=== PATIENT | female | born 1965 | race Caucasian/White ===

== ENCOUNTER 2016-12-17 19:57 | Emergency (ER) | payer SELFPAY ==
[2016-12-17 20:10] VITALS: BP 141/80; BMI 30.4
[2016-12-17] MEDS ORDERED: NS 1000 ML 1,000 ML IV ONE (20:29)
[2016-12-17] MEDS ORDERED: ZOFRAN INJ 4 MG VIAL IVP ONE (20:30)
--- NOTE | 2016-12-17 20:34 | DR.GENAD ---
HPI - PCP Primary Care Physician: raghu - Complaint/Symptoms Chief Complaint Doctors Comments: Patient is complaining of left lower abdominal pain, nausea, vomiting, diarrhea with decreased appetite for the past two hours getting progressively worst. Patient states she has had a large left lowe abdominal hernia for over seven years and she has not had it repaired because her doctor told her he was waiting for her glucose to come uncontrol before they fixed her hernia. States she has had the hernia seven years but only found out she was a diabetic two years ago. States she think her problems are due to her hernia because she has been like this before. States she smokes one pack cigarette daily but denies alcohol usage. States not other family members sick at home. Chief Complaint:: c/o n/v/d-pain in abd-says she has a hernia and it is hurting- took 4 mg zofran approx 1 hr ago with no relief - Source History Provided: Patient - Mode of Arrival Mode of Arrival: Ambulatory - Timing Onset of Chief Complaint: 12/17/16 PMH - PMH Past Medical History: Yes Past Medical History: Diabetes Past Medical History Comment: mrsa after Past Surgical History: Yes Surgical History: - Family History History of Family Medical Conditions: Yes Family Medical History: Diabetes Mellitus - Social History Does patient currently use any type of tobacco product: Yes Have you used tobacco products in the last 12 months: Yes Type of Tobacco Use: Cigarettes Do you use any recreational Drugs:: No - infectious screening Have you traveled outside the country in the last 6 months?: No Isolation: Standard ROS - Review of Systems Constitutional: No Symptoms Reported, Weakness, Loss of Appetite. negative: See HPI, Chills, Diaphoresis, Fever, Malaise, Irritable, Fatigue, Other Eyes: No Symptoms Reported ENTM: No Symptoms Reported Respiratoy: No Symptoms Reported, Non-Productive Cough, Wheezing. negative: See HPI, Productive Cough, Moist Cough, Dry Cough, Hacking Cough, Barking Cough , Brassy Cough, Orthopnea, Short of Breath, Stridor, Hemoptysis, Other Cardiovascular: No Symptoms Reported Gastrointestinal/Abdominal: No Symptoms Reported, Abdominal Pain, Diarrhea, Nausea, Vomiting. negative: See HPI, Constipation, Food Intolerance, Other Genitourinary: No Symptoms Reported Neurological: No Symptoms Reported Musculoskeletal: No Symptoms Reported Integumentary: No Symptoms Reported Hematologic/Lymphatic: No Symptoms Reported Endocrine: No Symptoms Reported Psychiatric: No Symptoms Reported PE - Vital Signs Vitals: Temperature 98.0 F Pulse Rate 100 Respiratory Rate 18 Blood Pressure 141/80 O2 Sat by Pulse Oximetry 99 - General Limitations: No Limitations General Appearance: Alert, In Distress (moderate) - Head Head Exam: Normal Inspection, Atraumatic, Normocephalic - Eyes Eye exam: Normal Appearance, PERRL, EOMI. negative: Scleral Icterus, Conjunctival Injection, Nystagmus, Miosis, Mydrasis, Periorbital Swelling, Periorbital Tenderness, Other - ENT ENT Exam: Normal Exam, Normal Oropharynx, Normal External Ear Exam, Mucous Membranes Moist, TM's Normal Bilaterally External Ear Exam: Normal External Inspection TM/Canal Exam: Bilateral Normal Nose Exam: Normal Nose Exam Mouth Exam: Normal Inspection Throat Exam: Normal Inspection - Neck Neck Exam: Normal Inspection, Full ROM, Trachea Midline. negative: Tenderness, Meningismus, Lymphadenopathy, Thyromegaly, Other - Chest Chest Inspection: Normal Inspection, Symmetric Chest Wall Rise - Respiratory Respiratory Exam: Normal Lung Sounds Bilat Respiratory Exam: Bilateral Wheezing, Bilateral Decreased Breath Sounds - Cardiovascular Cardiovascular Exam: Regular Rate, Normal Rhythm, Normal Heart Sounds, Systolic Murmur - Abdominal Exam Abdominal Exam: Normal Inspection, Normal Bowel Sounds, Soft, Distention, Tenderness (left lower abdominal hernia 12-15 cm partially reduciable), Guarding, Dimnished Bowel Sounds, Hernia Abdominal Tenderness: LLQ, Suprapubic, Moderate - Extremities Extremities Exam: Normal Inspection, Full ROM, Normal Capillary Refill. negative: Tenderness, Edema, Joint Swelling, Calf Tenderness, Other - Back Back Exam: Normal Inspection, Full ROM. negative: Tenderness, (R) CVA Tenderness, (L) CVA Tenderness, Muscle Spasm, Paraspinal Tenderness, Vertebral Tenderness, Rashes, (R) Sciatic Notch Tenderness, (L) Sciatic Notch Tendern, (R ) Straight Leg Raise, (L) Straight Leg Raise, Other - Neurologic Neurological Exam: Alert, Oriented X3, CN II-XII Intact, Reflexes Normal. negative: Normal Gait (gait not tested) - Psychiatric Psychiatric Exam: Normal Affect, Normal Mood. negative: Depressed, Agitated, Anxious, Flat Affect, Manic, Homicidal Ideation, Suicidal Ideation, Other - Skin Skin Exam: Warm, Dry, Intact, Normal Color ROR - Labs Reviewed Laboratory Results Reviewed?: Yes (All labs and x-ray results reviewed and discussed with patient) Result Diagrams: 12/17/16 20:45 12/17/16 20:45 Laboratory: WBC 14.7 X10^3/uL (3.6-10.0) H 12/17/16 20:45 RBC 5.41 X10^6/uL (3.5-5.4) H 12/17/16 20:45 Hgb 14.3 g/dL (12.0-16.0) 12/17/16 20:45 Hct 43.1 % (36.0-47.0) 12/17/16 20:45 MCV 79.6 fL (80.0-100.0) L 12/17/16 20:45 MCH 26.5 pg (27.0-34.0) L 12/17/16 20:45 MCHC 33.3 g/dL (33.0-35.0) 12/17/16 20:45 RDW 16.8 % (11.6-16.5) H 12/17/16 20:45 Plt Count 273 X10^3/uL (150.0-450.0) 12/17/16 20:45 MPV 9.2 fL (7.4-11.0) 12/17/16 20:45 Neut % 82.8 % (42.0-75.0) H 12/17/16 20:45 Lymph % 10.5 % (21.0-51.0) L 12/17/16 20:45 [place] % 2.6 % (0.0-13.0) 12/17/16 20:45 Eos % 2.5 % (0.9-2.9) 12/17/16 20:45 Baso % 1.6 % (0.2-1.0) H 12/17/16 20:45 Neut # 12.2 x10^3/uL (2.2-4.8) H 12/17/16 20:45 Lymph # 1.5 X10^3/uL (1.3-2.9) 12/17/16 20:45 [place] # 0.4 x10^3/uL (0.3-0.8) 12/17/16 20:45 Eos # 0.4 x10^3/uL (0.0-0.2) H 12/17/16 20:45 Baso # 0.2 X10^3/uL (0.0-0.1) H 12/17/16 20:45 Absolute Nucleated RBC 0.0 /100WBC 12/17/16 20:45 Sodium 138 mmol/L (136-145) 12/17/16 20:45 Corrected Sodium 139 mmol/L (136-145) 12/17/16 20:45 Potassium 4.3 mmol/L (3.5-5.1) 12/17/16 20:45 Chloride 102 mmol/L (98-107) 12/17/16 20:45 Carbon Dioxide 22.8 mmol/L (21-32) 12/17/16 20:45 BUN 16 mg/dL (7-18) 12/17/16 20:45 Creatinine 1.25 mg/dL (0.55-1.02) H 12/17/16 20:45 Est GFR (MDRD) Af Amer 58 (>60) L 12/17/16 20:45 Est GFR (MDRD) Non-Af 48 (>60) L 12/17/16 20:45 Glucose 158 mg/dL (65-99) H 12/17/16 20:45 Calcium 10.2 mg/dL (8.5-10.1) H 12/17/16 20:45 Corrected Calcium TNP 12/17/16 20:45 Total Bilirubin 0.40 mg/dL (0.2-1.0) 12/17/16 20:45 AST 55 Units/L (15-37) H 12/17/16 20:45 ALT 41 Units/L (12-78) 12/17/16 20:45 Alkaline Phosphatase 90 Units/L (46-116) 12/17/16 20:45 Total Protein 8.4 g/dL (6.4-8.2) H 12/17/16 20:45 Albumin 3.8 g/dL (3.4-5.0) 12/17/16 20:45 Globulin 4.6 g/dL (2.5-4.5) H 12/17/16 20:45 Albumin/Globulin Ratio 0.8 Ratio (1.1-2.1) L 12/17/16 20:45 Amylase 86 Units/L (25-115) 12/17/16 20:45 Lipase 202 Units/L (73-393) 12/17/16 20:45 Specimen Type Clean catch urine 12/17/16 20:30 Urine Color Yellow (YELLOW) 12/17/16 20:30 Urine Appearance Cloudy (CLEAR) 12/17/16 20:30 Urine pH 5.0 (5.0 - 8.0) 12/17/16 20:30 Ur Specific [place] 1.025 (1.000-1.030) 12/17/16 20:30 Urine Protein 3+ (NEGATIVE) 12/17/16 20:30 Urine Glucose (UA) Negative (NEGATIVE) 12/17/16 20:30 Urine Ketones 1+ (NEGATIVE) 12/17/16 20:30 Urine Occult Blood 1+ (NEGATIVE) 12/17/16 20:30 Urine Nitrite Negative (NEGATIVE) 12/17/16 20:30 Urine Bilirubin 1+ (NEGATIVE) 12/17/16 20:30 Urine Urobilinogen 1+ (NORMAL) 12/17/16 20:30 Ur Leukocyte Esterase 1+ (NEGATIVE) 12/17/16 20:30 Urine RBC 01 - 03 /HPF (NEGATIVE) 12/17/16 20:30 Urine WBC 02 - 05 /HPF (NEGATIVE) 12/17/16 20:30 Ur Squamous Epith Cells Numerous /HPF (NEGATIVE) 12/17/16 20:30 Amorphous Sediment 2+ /HPF (NEGATIVE) 12/17/16 20:30 Urine Bacteria 2+ /HPF (NEGATIVE) 12/17/16 20:30 Hyaline Casts Rare /LPF (NEGATIVE) 12/17/16 20:30 Urine Mucus Moderate /HPF (NEGATIVE) 12/17/16 20:30 Ur Culture Indicated? No/not indicated 12/17/16 20:30 - XRAY XRAY Interpreted by: Radiologist (CT abdomen/pelvis: Large left lower quadrant ventral bowel containing hernia. Cholelithiasis) - Diagnosis Discharge Problem: Abdominal pain, Gastroenteritis, Cholelithiasis, Urinary tract infection, Diabetes mellitus, Ventral hernia Chronic kidney disease Qualifiers: Chronic kidney disease stage: stage 3 (moderate) Qualified Code(s): N18.3 - Chronic kidney disease, stage 3 (moderate) - Discharge Plan Disposition: HOME, SELF-CARE Condition: Stable Prescriptions: Ciprofloxacin HCl [CIPRO 500 MG TAB *] 500 mg PO Q12H #20 tab Promethazine HCl [PHENERGAN TAB 25 MG *] 25 mg PO Q6H PRN #20 tab PRN Reason: Nausea/Vomiting - Follow ups/Referrals Follow ups/Referrals: Wood Fowler [Primary Care Provider] - 3 days JJ LUA [STAFF PHYSICIAN] - 3 days - Instructions Instructions: Cholelithiasis, Urinary Tract Infection, Ventral Hernia, Chronic Kidney Disease, Viral Gastroenteritis, Adult
[2016-12-17] MEDS ORDERED: TORADOL 30 MG VIAL IVP STA (20:35)
[2016-12-17] MEDS ORDERED: NS 1000 ML 1,000 ML ONE (20:37)
[2016-12-17] MEDS ORDERED: TORADOL 30 MG VIAL ONE (20:37)
[2016-12-17] MEDS ORDERED: ZOFRAN INJ 4 MG VIAL ONE (20:37)
[2016-12-17 20:54] LABS: BASOPHILS # (AUTO) 0.2 X10^3/uL (0.0-0.1); BASOPHILS % (AUTO) 1.6 % (0.2-1.0); EOSINOPHILS # (AUTO) 0.4 x10^3/uL (0.0-0.2); EOSINOPHILS % (AUTO) 2.5 % (0.9-2.9); HEMATOCRIT 43.1 % (36.0-47.0); HEMOGLOBIN 14.3 g/dL (12.0-16.0); LYMPHOCYTES # (AUTO) 1.5 X10^3/uL (1.3-2.9); LYMPHOCYTES % (AUTO) 10.5 % (21.0-51.0); MEAN CORPUSCULAR HEMOGLOBIN 26.5 pg (27.0-34.0); MEAN CORPUSCULAR HGB CONC 33.3 g/dL (33.0-35.0); MEAN CORPUSCULAR VOLUME 79.6 fL (80.0-100.0); MEAN PLATELET VOLUME 9.2 fL (7.4-11.0); MONOCYTES # (AUTO) 0.4 x10^3/uL (0.3-0.8); MONOCYTES % (AUTO) 2.6 % (0.0-13.0); NEUTROPHILS # (AUTO) 12.2 x10^3/uL (2.2-4.8); NEUTROPHILS % (AUTO) 82.8 % (42.0-75.0); PLATELET COUNT 273 X10^3/uL (150.0-450.0); RED BLOOD COUNT 5.41 X10^6/uL (3.5-5.4); RED CELL DISTRIBUTION WIDTH 16.8 % (11.6-16.5); WHITE BLOOD COUNT 14.7 X10^3/uL (3.6-10.0)
[2016-12-17 20:58] LABS: BILIRUBIN,URINE 1+ (NEGATIVE); BLOOD/HEMOGLOBIN,URINE 1+ (NEGATIVE); GLUCOSE, URINE NEGATIVE (NEGATIVE); KETONES,URINE 1+ (NEGATIVE); LEUKOCYTE ESTERASE ,URINE 1+ (NEGATIVE); NITRITES,URINE NEGATIVE (NEGATIVE); PROTEIN,URINE 3+ (NEGATIVE); UROBILINOGEN,URINE 1+ (NORMAL)
[2016-12-17 21:04] LABS: ALANINE AMINOTRANSFERASE 41 Units/L (12-78); ALBUMIN 3.8 g/dL (3.4-5.0); ALKALINE PHOSPHATASE 90 Units/L (46-116); AMYLASE 86 Units/L (25-115); ASPARTATE AMINO TRANSFERASE 55 Units/L (15-37); BLOOD UREA NITROGEN 16 mg/dL (7-18); CALCIUM 10.2 mg/dL (8.5-10.1); CARBON DIOXIDE 22.8 mmol/L (21-32); CHLORIDE 102 mmol/L (98-107); COR NA(FOR HYPERGLY) 139 mmol/L (136-145); CREATININE 1.25 mg/dL (0.55-1.02); GLUCOSE 158 mg/dL (65-99); LIPASE 202 Units/L (73-393); SODIUM 138 mmol/L (136-145); TOTAL PROTEIN 8.4 g/dL (6.4-8.2); eGFR BLACK RACES 58 (>60); eGFR NON BLACK RACES 48 (>60)
--- NOTE | 2016-12-17 21:06 | CT ---
Abdomen and pelvis CT without contrast: Indication: Left lower quadrant abdominal pain in association with hernia. Vomiting. Comparison: None available. Technique: Noncontrast CT imaging of the abdomen and pelvis was performed with multiplanar reformati ons. Findings: The imaged thoracic contents are unremarkable. No noncontrast vascular abnormality is appr eciated. There is severe diffuse decrease in attenuation of the liver. Otherwise, the solid abdominal viscera are unremarkable. A gallstone is present, without biliary dilation or pericholecystic inflammation. There is a large left lower quadrant hernia, the mouth of which measures about 5.5 x 4.8 cm. The her sophie contains small bowel, but there is no associated inflammatory change or dilated loops of bowel. The remainder of the imaged gastrointestinal tract is unremarkable. The pelvic organs are within normal limits. There is no free fluid or free air. No acute skeletal abnormality or worrisome skeletal lesion is identified. Impression: 1. Large left lower quadrant ventral small bowel containing hernia. No inflammatory change within th e hernia is seen, and there is no evidence of bowel obstruction. 2. Marked hepatic steatosis and cholelithiasis. Reported By:
[2016-12-17 21:14] LABS: COLOR,URINE YELLOW (YELLOW)
[2016-12-17 21:15] LABS: AMORPHOUS SEDIMENT,UR 2+ /HPF (NEGATIVE); APPEARANCE,URINE CLOUDY (CLEAR); BACTERIA,URINE 2+ /HPF (NEGATIVE); HYALINE CASTS, URINE RARE /LPF (NEGATIVE); MUCUS,URINE MODERATE /HPF (NEGATIVE); SQUAMOUS EPITHELIAL CELL,UR NUMEROUS /HPF (NEGATIVE)
[2016-12-17] MEDS ORDERED: ROCEPHIN VIAL 1 GM 1 GM in NS 50 ML IV + SPIKE MINIBAG* 50 ML IV ONE (21:33)
[2016-12-17] MEDS ORDERED: ROCEPHIN 1 GM IV PREMIX * OUT OF STOCK 50 ML IV ONE (22:06)
== END 2016-12-17 22:29 | disposition home or self-care (01) ==
LOC: ER 19:57
DX: K43.9 Ventral hernia without obstruction or gangrene (principal); R10.32 Left lower quadrant pain; K52.89 Other specified noninfective gastroenteritis and colitis; N18.3 Chronic kidney disease, stage 3 (moderate); K80.20 Calculus of gallbladder without cholecystitis without obstruction; N39.0 Urinary tract infection, site not specified; E11.9 Type 2 diabetes mellitus without complications; K76.0 Fatty (change of) liver, not elsewhere classified
CPT/HCPCS: 36415; 74176; 80053; 81001; 82150; 83690; 85025; 96365; 96367; 96374; 96375; 99283; A4216; A4222; J0696; J1885; J2405

== ENCOUNTER 2018-11-22 09:43 | Inpatient (IN) ==
[2018-11-22] MEDS: D5 1/2 NS 1000 ML 1,000 ML IV SCH ×2 (10:47→19:12)
[2018-11-22 10:52] LABS: BASOPHILS # (AUTO) 0.1 X10^3/uL (0.0-0.1); BASOPHILS % (AUTO) 0.7 % (0.2-1.0); EOSINOPHILS # (AUTO) 0.4 x10^3/uL (0.0-0.2); EOSINOPHILS % (AUTO) 3.9 % (0.9-2.9); HEMATOCRIT 44.9 % (36.0-47.0); HEMOGLOBIN 15.3 g/dL (12.0-16.0); LYMPHOCYTES # (AUTO) 1.5 X10^3/uL (1.3-2.9); LYMPHOCYTES % (AUTO) 15.4 % (21.0-51.0); MEAN CORPUSCULAR HEMOGLOBIN 30.5 pg (27.0-34.0); MEAN CORPUSCULAR HGB CONC 34.1 g/dL (33.0-35.0); MEAN CORPUSCULAR VOLUME 89.5 fL (80.0-100.0); MONOCYTES # (AUTO) 0.4 x10^3/uL (0.3-0.8); MONOCYTES % (AUTO) 3.8 % (0.0-13.0); NEUTROPHILS # (AUTO) 7.6 x10^3/uL (2.2-4.8); NEUTROPHILS % (AUTO) 76.2 % (42.0-75.0); PLATELET COUNT 211 X10^3/uL (150.0-450.0); RED BLOOD COUNT 5.01 X10^6/uL (3.5-5.4); RED CELL DISTRIBUTION WIDTH 14.6 % (11.6-16.5); WHITE BLOOD COUNT 9.9 X10^3/uL (3.6-10.0)
[2018-11-22 10:56] LABS: BILIRUBIN,URINE NEGATIVE (NEGATIVE); BLOOD/HEMOGLOBIN,URINE NEGATIVE (NEGATIVE); GLUCOSE, URINE NEGATIVE (NEGATIVE); KETONES,URINE NEGATIVE (NEGATIVE); LEUKOCYTE ESTERASE ,URINE NEGATIVE (NEGATIVE); NITRITES,URINE NEGATIVE (NEGATIVE); PROTEIN,URINE NEGATIVE (NEGATIVE); UROBILINOGEN,URINE NORMAL (NORMAL)
[2018-11-22 10:57] LABS: APPEARANCE,URINE CLEAR (CLEAR); COLOR,URINE YELLOW (YELLOW)
[2018-11-22 10:59] LABS: ALANINE AMINOTRANSFERASE 35 Units/L (12-78); ALBUMIN 3.6 g/dL (3.4-5.0); ALKALINE PHOSPHATASE 119 Units/L (46-116); ASPARTATE AMINO TRANSFERASE 54 Units/L (15-37); BLOOD UREA NITROGEN 10 mg/dL (7-18); CALCIUM 9.5 mg/dL (8.5-10.1); CARBON DIOXIDE 25.2 mmol/L (21-32); CHLORIDE 100 mmol/L (98-107); COR NA(FOR HYPERGLY) 137 mmol/L (136-145); SODIUM 135 mmol/L (136-145); eGFR NON BLACK RACES 55 (>60)
--- NOTE | 2018-11-22 10:59 | DR.EXTPAIN ---
HPI Time seen Time Seen by Provider: 11/22/18 10:51 PCP Primary Care Physician: ADDIS LOPEZ Complaint/Symptoms Chief Complaint:: HAVING PROBLEMS WITH GALLBLADDER AND HERNIA FOR ABOUT A MONTH. PAIN GOT WORSE SO I CAME HERE Self Treatment fo Chief Complaint: ZOFRAN Source History Provided: Patient Mode of arrival Mode of Arrival: Ambulatory Timing Onset of Chief Complaint: 10/23/18 PMH PMH Past Medical History: Yes Past Medical History: Asthma, Diabetes and Dyslipidemia Past Surgical History: Yes Surgical History: Family History History of Family Medical Conditions: Yes Family Medical History: Cancer and Hypertension Social History Does patient currently use any type of tobacco product: Yes Have you used tobacco products in the last 12 months: Yes Type of Tobacco Use: Cigarettes How many years tobacco product used: 35 Does any household member use tobacco: Yes Alcohol Use: None Do you use any recreational Drugs:: No Lives With: Spouse Lives Where: Home infectious screening In the last 2 months have you had wt loss of >10#?: NO Have you had fever, night sweats or hemotysis?: No Have you traveled outside the country in the last 6 months?: No Isolation: Standard PE Vital Signs Vitals: Temperature 97.2 F Pulse Rate 90 Respiratory Rate 16 Blood Pressure [Left Arm] 141/86 Blood Pressure 136/79 O2 Sat by Pulse Oximetry 97 ROR Labs Reviewed Result Diagrams: 11/22/18 10:40 11/22/18 10:40 Laboratory: WBC 9.9 X10^3/uL (3.6-10.0) 11/22/18 10:40 RBC 5.01 X10^6/uL (3.5-5.4) 11/22/18 10:40 Hgb 15.3 g/dL (12.0-16.0) 11/22/18 10:40 Hct 44.9 % (36.0-47.0) 11/22/18 10:40 MCV 89.5 fL (80.0-100.0) 11/22/18 10:40 MCH 30.5 pg (27.0-34.0) 11/22/18 10:40 MCHC 34.1 g/dL (33.0-35.0) 11/22/18 10:40 RDW 14.6 % (11.6-16.5) 11/22/18 10:40 Plt Count 211 X10^3/uL (150.0-450.0) 11/22/18 10:40 MPV 9.0 fL (7.4-11.0) 11/22/18 10:40 Neut % (Auto) 76.2 % (42.0-75.0) H 11/22/18 10:40 Lymph % (Auto) 15.4 % (21.0-51.0) L 11/22/18 10:40 [place] % (Auto) 3.8 % (0.0-13.0) 11/22/18 10:40 Eos % (Auto) 3.9 % (0.9-2.9) H 11/22/18 10:40 Baso % (Auto) 0.7 % (0.2-1.0) 11/22/18 10:40 Neut # (Auto) 7.6 x10^3/uL (2.2-4.8) H 11/22/18 10:40 Lymph # (Auto) 1.5 X10^3/uL (1.3-2.9) 11/22/18 10:40 [place] # (Auto) 0.4 x10^3/uL (0.3-0.8) 11/22/18 10:40 Eos # (Auto) 0.4 x10^3/uL (0.0-0.2) H 11/22/18 10:40 Baso # (Auto) 0.1 X10^3/uL (0.0-0.1) 11/22/18 10:40 Absolute Nucleated RBC 0.1 /100WBC 11/22/18 10:40 Sodium 135 mmol/L (136-145) L 11/22/18 10:40 Corrected Sodium 137 mmol/L (136-145) 11/22/18 10:40 Potassium 4.4 mmol/L (3.5-5.1) 11/22/18 10:40 Chloride 100 mmol/L (98-107) 11/22/18 10:40 Carbon Dioxide 25.2 mmol/L (21-32) 11/22/18 10:40 BUN 10 mg/dL (7-18) 11/22/18 10:40 Creatinine 1.10 mg/dL (0.55-1.02) H 11/22/18 10:40 Est GFR (MDRD) Af Amer > 60 (>60) 11/22/18 10:40 Est GFR (MDRD) Non-Af 55 (>60) L 11/22/18 10:40 Glucose 180 mg/dL (65-99) H 11/22/18 10:40 Calcium 9.5 mg/dL (8.5-10.1) 11/22/18 10:40 Corrected Calcium TNP 11/22/18 10:40 Total Bilirubin 0.30 mg/dL (0.2-1.0) 11/22/18 10:40 AST 54 Units/L (15-37) H 11/22/18 10:40 ALT 35 Units/L (12-78) 11/22/18 10:40 Alkaline Phosphatase 119 Units/L (46-116) H 11/22/18 10:40 Total Protein 8.0 g/dL (6.4-8.2) 11/22/18 10:40 Albumin 3.6 g/dL (3.4-5.0) 11/22/18 10:40 Globulin 4.4 g/dL (2.5-4.5) 11/22/18 10:40 Albumin/Globulin Ratio 0.8 Ratio (1.1-2.1) L 11/22/18 10:40 Specimen Type Clean catch urine 11/22/18 10:49 Urine Color Yellow (YELLOW) 11/22/18 10:49 Urine Appearance Clear (CLEAR) 11/22/18 10:49 Urine pH 6.0 (5.0 - 8.0) 11/22/18 10:49 Ur Specific [place] 1.010 (1.000-1.030) 11/22/18 10:49 Urine Protein Negative (NEGATIVE) 11/22/18 10:49 Urine Glucose (UA) Negative (NEGATIVE) 11/22/18 10:49 Urine Ketones Negative (NEGATIVE) 11/22/18 10:49 Urine Occult Blood Negative (NEGATIVE) 11/22/18 10:49 Urine Nitrite Negative (NEGATIVE) 11/22/18 10:49 Urine Bilirubin Negative (NEGATIVE) 11/22/18 10:49 Urine Urobilinogen Normal (NORMAL) 11/22/18 10:49 Ur Leukocyte Esterase Negative (NEGATIVE) 11/22/18 10:49
--- NOTE | 2018-11-22 11:24 | RAD ---
HISTORY: Abdominal pain Study: Flat and upright abdomen, PA chest Comparison: 10/21/2018 Findings: The heart is within normal limits in size. The karina are normal. The lung vicente are clear. The abdominal gas pattern is nonspecific and nonobstructive. No pneumoperitoneum is identified. Cholelithiasis is present. There is a moderately large amount of stool present suggestive of possible constipation. IMPRESSION: Nonspecific, nonobstructive bowel gas pattern Cholelithiasis Lungs clear Moderate stool throughout the colon Reported By:
[2018-11-22] MEDS: LEVAQUIN PREMIX IV 500 MG 500 MG/100 ML BAG IV SCH (14:58)
[2018-11-22] MEDS: DILAUDID INJ IVP PRN ×2 (14:59→20:30)
[2018-11-22] MEDS: ZOFRAN INJ 4 MG VIAL IVP PRN ×2 (15:00→19:12)
--- NOTE | 2018-11-23 00:47 | DR.UPDATE ---
H&P Update History and Physical Update: History and Physical reviewed and patient examined. Changes noted: NO Yes with the following: Pt was having abdominal pain , nausea, vomiting with bloating feeling and food intolerance . she was directed to go to the ER and was admitted to proceed with surgery . Pt was getting dehydrated (has underlining CKD , DM, liver dysfunction with slight elevated LFTand symptomatic gallstones .).the incisional hernia is very large , incarcerated with partial SBO . Pt is smoker, obese with mild COPD. abdomen is tender mainly Rt side and around the hernia which is completely incarcerated and large , > 15 cm . will keep NPO , IVF and ATB , give enemas , medical evaluation and possible surgery after that
[2018-11-23] MEDS: D5 1/2 NS 1000 ML 1,000 ML IV SCH ×3 (04:00→20:42)
[2018-11-23 05:23] LABS: BASOPHILS % (AUTO) 0.4 % (0.2-1.0); EOSINOPHILS # (AUTO) 0.3 x10^3/uL (0.0-0.2); EOSINOPHILS % (AUTO) 3.3 % (0.9-2.9); HEMATOCRIT 42.1 % (36.0-47.0); HEMOGLOBIN 14.4 g/dL (12.0-16.0); LYMPHOCYTES # (AUTO) 1.5 X10^3/uL (1.3-2.9); LYMPHOCYTES % (AUTO) 17.3 % (21.0-51.0); MEAN CORPUSCULAR HEMOGLOBIN 30.5 pg (27.0-34.0); MEAN CORPUSCULAR HGB CONC 34.2 g/dL (33.0-35.0); MEAN CORPUSCULAR VOLUME 89.1 fL (80.0-100.0); MONOCYTES # (AUTO) 0.3 x10^3/uL (0.3-0.8); MONOCYTES % (AUTO) 3.7 % (0.0-13.0); NEUTROPHILS # (AUTO) 6.7 x10^3/uL (2.2-4.8); NEUTROPHILS % (AUTO) 75.3 % (42.0-75.0); PLATELET COUNT 194 X10^3/uL (150.0-450.0); RED BLOOD COUNT 4.72 X10^6/uL (3.5-5.4); RED CELL DISTRIBUTION WIDTH 14.6 % (11.6-16.5); WHITE BLOOD COUNT 8.9 X10^3/uL (3.6-10.0)
[2018-11-23 05:29] LABS: ALANINE AMINOTRANSFERASE 30 Units/L (12-78); ALBUMIN 3.1 g/dL (3.4-5.0); ALKALINE PHOSPHATASE 100 Units/L (46-116); ASPARTATE AMINO TRANSFERASE 51 Units/L (15-37); BLOOD UREA NITROGEN 8 mg/dL (7-18); CALCIUM 8.8 mg/dL (8.5-10.1); CARBON DIOXIDE 29.3 mmol/L (21-32); CHLORIDE 101 mmol/L (98-107); COR CA(FOR HYPOALB) 9.5 mg/dL (8.5-10.1); COR NA(FOR HYPERGLY) 138 mmol/L (136-145); CREATININE 1.07 mg/dL (0.55-1.02); SODIUM 137 mmol/L (136-145); TOTAL PROTEIN 7.3 g/dL (6.4-8.2); eGFR NON BLACK RACES 57 (>60)
[2018-11-23] MEDS: ZOFRAN INJ 4 MG VIAL IVP PRN ×3 (05:57→18:25)
[2018-11-23] MEDS ORDERED: PHARMACY CONSULT - DOSE _____ XX SCH (09:00)
[2018-11-23] MEDS ORDERED: PROTONIX INJ 40 MG VIAL ONE (09:01)
[2018-11-23] MEDS: PROTONIX INJ 40 MG VIAL IVP SCH (09:10)
[2018-11-23 09:21] VITALS: BMI 33.8
[2018-11-23] MEDS: LEVAQUIN PREMIX IV 500 MG 500 MG/100 ML BAG IV SCH (09:44)
[2018-11-23] MEDS ORDERED: QUELICIN (OR ANECTINE) ONE (09:59)
[2018-11-23] MEDS ORDERED: NEOSTIGMINE INJ ONE (09:59)
[2018-11-23] MEDS ORDERED: ZEMURON ONE ×2 (09:59→12:14)
[2018-11-23] MEDS ORDERED: ZOFRAN INJ 4 MG VIAL ONE (09:59)
[2018-11-23] MEDS ORDERED: TORADOL 30 MG VIAL ONE (09:59)
[2018-11-23] MEDS ORDERED: ROBINUL ONE (09:59)
[2018-11-23] MEDS ORDERED: XYLOCAINE 1 % (PLAIN) ONE (09:59)
[2018-11-23] MEDS ORDERED: DECADRON INJ ONE ×2 (09:59→12:16)
[2018-11-23] MEDS ORDERED: VERSED ONE (09:59)
[2018-11-23] MEDS ORDERED: DIPRIVAN VIAL ONE (09:59)
[2018-11-23] MEDS ORDERED: ULTANE GAS ONE (09:59)
[2018-11-23] MEDS ORDERED: EPHEDRINE SULFATE INJ ONE (09:59)
[2018-11-23] MEDS ORDERED: NS IRRIGATION 3000 ML ONE (10:15)
[2018-11-23] MEDS ORDERED: NS IRRIGATION 1000 ML ONE (10:15)
[2018-11-23] MEDS ORDERED: BACITRACIN VIAL ONE (11:48)
[2018-11-23] MEDS ORDERED: LR 1000 ML IV 1,000 ML ONE ×2 (12:06→14:19)
[2018-11-23] MEDS ORDERED: FENTANYL INJ 100 mcg ONE (12:14)
[2018-11-23] MEDS ORDERED: DIPRIVAN VIAL 20 ML ONE (12:18)
[2018-11-23] MEDS ORDERED: NS 100 ML IV 100 ML ONE (12:53)
[2018-11-23] MEDS ORDERED: NS 1000 ML 1,000 ML ONE (12:54)
[2018-11-23] MEDS ORDERED: ANCEF 1 GRAM IV PREMIX* 1 G/50 ML BAG IV ONE (13:13)
[2018-11-23 13:48] LABS: BILIRUBIN,URINE NEGATIVE (NEGATIVE); BLOOD/HEMOGLOBIN,URINE NEGATIVE (NEGATIVE); GLUCOSE, URINE NEGATIVE (NEGATIVE); KETONES,URINE NEGATIVE (NEGATIVE); LEUKOCYTE ESTERASE ,URINE NEGATIVE (NEGATIVE); NITRITES,URINE NEGATIVE (NEGATIVE); PROTEIN,URINE 2+ (NEGATIVE); UROBILINOGEN,URINE NORMAL (NORMAL)
[2018-11-23 13:51] LABS: APPEARANCE,URINE CLEAR (CLEAR); COLOR,URINE YELLOW (YELLOW)
[2018-11-23 13:55] LABS: BACTERIA,URINE NEGATIVE /HPF (NEGATIVE); RBC,URINE 0-2 /HPF (NONE SEEN); RENAL EPITHELIAL CELLS,URINE RARE /HPF (NEGATIVE); SQUAMOUS EPITHELIAL CELL,UR FEW /HPF (NEGATIVE)
[2018-11-23] MEDS ORDERED: NS 1000 ML 2,000 ML ONE (14:19)
[2018-11-23] MEDS ORDERED: DILAUDID INJ ONE ×2 (16:12→16:29)
[2018-11-23] MEDS: DILAUDID INJ IVP PRN ×4 (16:13→22:06)
[2018-11-23] MEDS ORDERED: ZOFRAN INJ 4 MG VIAL IVP PRN (16:14)
[2018-11-23] MEDS ORDERED: REGLAN INJ 10 MG VIAL IVP PRN (16:14)
[2018-11-23] MEDS ORDERED: BENADRYL INJ 50 MG VIAL IVP PRN (16:14)
[2018-11-23] MEDS ORDERED: PHENERGAN INJ 25 MG IM PRN (16:14)
[2018-11-23] MEDS ORDERED: HumuLIN R ONE (17:40)
[2018-11-23] MEDS ORDERED: PHENERGAN INJ 25 MG IM ONE (22:04)
[2018-11-23] MEDS: ANCEF VIAL 1 GRAM IVP SCH (22:06)
[2018-11-24] MEDS: D5 1/2 NS 1000 ML 1,000 ML IV SCH ×3 (00:33→08:59)
[2018-11-24] MEDS: ZOFRAN INJ 4 MG VIAL IVP PRN ×4 (04:44→22:37)
[2018-11-24] MEDS: DILAUDID INJ IVP PRN ×5 (04:44→20:46)
[2018-11-24 05:31] LABS: BASOPHILS % (AUTO) 0.3 % (0.2-1.0); HEMOGLOBIN 13.3 g/dL (12.0-16.0); LYMPHOCYTES # (AUTO) 0.9 X10^3/uL (1.3-2.9); LYMPHOCYTES % (AUTO) 5.6 % (21.0-51.0); MEAN CORPUSCULAR HEMOGLOBIN 29.8 pg (27.0-34.0); MEAN CORPUSCULAR HGB CONC 33.4 g/dL (33.0-35.0); MEAN CORPUSCULAR VOLUME 89.4 fL (80.0-100.0); MEAN PLATELET VOLUME 9.1 fL (7.4-11.0); MONOCYTES # (AUTO) 0.6 x10^3/uL (0.3-0.8); MONOCYTES % (AUTO) 3.6 % (0.0-13.0); NEUTROPHILS # (AUTO) 15.2 x10^3/uL (2.2-4.8); NEUTROPHILS % (AUTO) 90.5 % (42.0-75.0); PLATELET COUNT 220 X10^3/uL (150.0-450.0); RED BLOOD COUNT 4.47 X10^6/uL (3.5-5.4); RED CELL DISTRIBUTION WIDTH 14.7 % (11.6-16.5); WHITE BLOOD COUNT 16.8 X10^3/uL (3.6-10.0)
[2018-11-24 05:55] LABS: ALANINE AMINOTRANSFERASE 37 Units/L (12-78); ALBUMIN 2.9 g/dL (3.4-5.0); ALKALINE PHOSPHATASE 89 Units/L (46-116); ASPARTATE AMINO TRANSFERASE 65 Units/L (15-37); BLOOD UREA NITROGEN 7 mg/dL (7-18); CALCIUM 8.4 mg/dL (8.5-10.1); CARBON DIOXIDE 22.9 mmol/L (21-32); CHLORIDE 102 mmol/L (98-107); COR CA(FOR HYPOALB) 9.3 mg/dL (8.5-10.1); COR NA(FOR HYPERGLY) 139 mmol/L (136-145); CREATININE 1.15 mg/dL (0.55-1.02); SODIUM 136 mmol/L (136-145); TOTAL PROTEIN 6.9 g/dL (6.4-8.2); eGFR NON BLACK RACES 53 (>60)
[2018-11-24 06:08] LABS: PLATELET MORPHOLOGY COMMENT NORMAL (NORMAL)
[2018-11-24] MEDS: ANCEF VIAL 1 GRAM IVP SCH ×3 (06:21→21:05)
[2018-11-24] MEDS: LEVAQUIN PREMIX IV 500 MG 500 MG/100 ML BAG IV SCH (09:00)
[2018-11-24] MEDS: PROTONIX INJ 40 MG VIAL IVP SCH (09:01)
[2018-11-24] MEDS: LOVENOX INJ 40 MG SYR SC SCH (09:31)
[2018-11-24] MEDS: NIX CREME RINSE EXT SCH (12:13)
--- NOTE | 2018-11-24 16:20 | DR.PROGNOT ---
Hospital Progress Notes - Progress Note for Day of: Progress Note Date: 11/24/18 - Chief Complaint Chief Complaint: PO Lap tiera and repair of incarcerated incisional hernia . doing very well with less pain. no SOB or CP . LFT are normal . - Past Medical Family Social History Past Med/Fam/Surg Hx: No changes since H&P Allergies: Allergies latex Allergy (Verified 10/21/18 11:46) morphine Allergy (Verified 10/21/18 11:46) - Review Of Systems ROS: No change since H&P - Vital Signs Vital Signs: Temperature 98.6 F Pulse Rate [Left Brachial] 77 Pulse Rate 84 Respiratory Rate 22 Blood Pressure [Right Arm] 125/62 Blood Pressure [Left Arm] 114/65 Blood Pressure 125/59 O2 Sat by Pulse Oximetry 94 - Physical Exam : Normal GI:Auscultation: Normal GI: Tenderness: Diffuse (soft abdomen with diffuse denderness , BS+) Mood Description: Calm Speech Pattern: Clear, Appropriate - Laboratory and Diagnostics Result Diagrams: 11/24/18 04:45 11/24/18 04:45 Labs: Laboratory WBC 16.8 X10^3/uL (3.6-10.0) H 11/24/18 04:45 RBC 4.47 X10^6/uL (3.5-5.4) 11/24/18 04:45 Hgb 13.3 g/dL (12.0-16.0) 11/24/18 04:45 Hct 40.0 % (36.0-47.0) 11/24/18 04:45 MCV 89.4 fL (80.0-100.0) 11/24/18 04:45 MCH 29.8 pg (27.0-34.0) 11/24/18 04:45 MCHC 33.4 g/dL (33.0-35.0) 11/24/18 04:45 RDW 14.7 % (11.6-16.5) 11/24/18 04:45 Plt Count 220 X10^3/uL (150.0-450.0) 11/24/18 04:45 Plt Count Comment Adequate (ADEQUATE) 11/24/18 04:45 MPV 9.1 fL (7.4-11.0) 11/24/18 04:45 Neut % (Auto) 90.5 % (42.0-75.0) H 11/24/18 04:45 Lymph % (Auto) 5.6 % (21.0-51.0) L 11/24/18 04:45 [place] % (Auto) 3.6 % (0.0-13.0) 11/24/18 04:45 Eos % (Auto) 0.0 % (0.9-2.9) L 11/24/18 04:45 Baso % (Auto) 0.3 % (0.2-1.0) 11/24/18 04:45 Neut # (Auto) 15.2 x10^3/uL (2.2-4.8) H 11/24/18 04:45 Lymph # (Auto) 0.9 X10^3/uL (1.3-2.9) L 11/24/18 04:45 [place] # (Auto) 0.6 x10^3/uL (0.3-0.8) 11/24/18 04:45 Eos # (Auto) 0.0 x10^3/uL (0.0-0.2) 11/24/18 04:45 Baso # (Auto) 0.0 X10^3/uL (0.0-0.1) 11/24/18 04:45 Absolute Nucleated RBC 0.1 /100WBC 11/24/18 04:45 Total Counted 100 11/24/18 04:45 Neutrophils % (Manual) 88 % (39-76) H 11/24/18 04:45 Lymphocytes % (Manual) 8 % (13-43) L 11/24/18 04:45 Monocytes % (Manual) 4 % (4-9) 11/24/18 04:45 Plt Morphology Comment Normal (NORMAL) 11/24/18 04:45 RBC Morphology Normal (NORMAL) 11/24/18 04:45 Sodium 136 mmol/L (136-145) 11/24/18 04:45 Corrected Sodium 139 mmol/L (136-145) 11/24/18 04:45 Potassium 4.3 mmol/L (3.5-5.1) 11/24/18 04:45 Chloride 102 mmol/L (98-107) 11/24/18 04:45 Carbon Dioxide 22.9 mmol/L (21-32) 11/24/18 04:45 BUN 7 mg/dL (7-18) 11/24/18 04:45 Creatinine 1.15 mg/dL (0.55-1.02) H 11/24/18 04:45 Est GFR (MDRD) Af Amer > 60 (>60) 11/24/18 04:45 Est GFR (MDRD) Non-Af 53 (>60) L 11/24/18 04:45 Glucose 243 mg/dL (65-99) H 11/24/18 04:45 POC Glucose (mg/dL) 159 mg/dL (65-99) H 11/24/18 11:16 Calcium 8.4 mg/dL (8.5-10.1) L 11/24/18 04:45 Corrected Calcium 9.3 mg/dL (8.5-10.1) 11/24/18 04:45 Total Bilirubin 0.20 mg/dL (0.2-1.0) 11/24/18 04:45 AST 65 Units/L (15-37) H 11/24/18 04:45 ALT 37 Units/L (12-78) 11/24/18 04:45 Alkaline Phosphatase 89 Units/L (46-116) 11/24/18 04:45 Total Protein 6.9 g/dL (6.4-8.2) 11/24/18 04:45 Albumin 2.9 g/dL (3.4-5.0) L 11/24/18 04:45 Globulin 4.0 g/dL (2.5-4.5) 11/24/18 04:45 Albumin/Globulin Ratio 0.7 Ratio (1.1-2.1) L 11/24/18 04:45 Specimen Type Catherized urine 11/23/18 13:40 Urine Color Yellow (YELLOW) 11/23/18 13:40 Urine Appearance Clear (CLEAR) 11/23/18 13:40 Urine pH 7.0 (5.0 - 8.0) 11/23/18 13:40 Ur Specific [place] 1.005 (1.000-1.030) 11/23/18 13:40 Urine Protein 2+ (NEGATIVE) 11/23/18 13:40 Urine Glucose (UA) Negative (NEGATIVE) 11/23/18 13:40 Urine Ketones Negative (NEGATIVE) 11/23/18 13:40 Urine Occult Blood Negative (NEGATIVE) 11/23/18 13:40 Urine Nitrite Negative (NEGATIVE) 11/23/18 13:40 Urine Bilirubin Negative (NEGATIVE) 11/23/18 13:40 Urine Urobilinogen Normal (NORMAL) 11/23/18 13:40 Ur Leukocyte Esterase Negative (NEGATIVE) 11/23/18 13:40 Urine RBC 0-2 /HPF (NONE SEEN) 11/23/18 13:40 Urine WBC 0-2 /HPF (NONE SEEN) 11/23/18 13:40 Ur Squamous Epith Cells Few /HPF (NEGATIVE) 11/23/18 13:40 Ur Renal Epithelial Cell Rare /HPF (NEGATIVE) 11/23/18 13:40 Urine Bacteria Negative /HPF (NEGATIVE) 11/23/18 13:40 Ur Culture Indicated? No/not indicated 11/23/18 13:40 Tissue Pathology To follow 11/23/18 14:32 - Assessment and Plan 1: PO lap tiera and repair of incisional hernia . OOB with binder , start liquid diet . to D/C NGT ,Castro cath. will keep the drain tody. same DVT prophylaxis . - Problem Patient Problems: Patient Problems Cholelithiasis (Acute) K80.20
[2018-11-24] MEDS ORDERED: ROBITUSSIN DM PO PRN (23:27)
[2018-11-25] MEDS: DILAUDID INJ IVP PRN ×6 (00:34→20:52)
[2018-11-25] MEDS: D5 1/2 NS 1000 ML 1,000 ML IV SCH ×2 (04:31→23:04)
[2018-11-25 05:24] LABS: BASOPHILS % (AUTO) 0.4 % (0.2-1.0); EOSINOPHILS # (AUTO) 0.2 x10^3/uL (0.0-0.2); EOSINOPHILS % (AUTO) 1.7 % (0.9-2.9); HEMATOCRIT 36.3 % (36.0-47.0); HEMOGLOBIN 12.2 g/dL (12.0-16.0); LYMPHOCYTES # (AUTO) 1.3 X10^3/uL (1.3-2.9); LYMPHOCYTES % (AUTO) 12.6 % (21.0-51.0); MEAN CORPUSCULAR HEMOGLOBIN 29.8 pg (27.0-34.0); MEAN CORPUSCULAR HGB CONC 33.5 g/dL (33.0-35.0); MEAN PLATELET VOLUME 8.6 fL (7.4-11.0); MONOCYTES # (AUTO) 0.4 x10^3/uL (0.3-0.8); MONOCYTES % (AUTO) 4.4 % (0.0-13.0); NEUTROPHILS % (AUTO) 80.9 % (42.0-75.0); PLATELET COUNT 172 X10^3/uL (150.0-450.0); RED BLOOD COUNT 4.08 X10^6/uL (3.5-5.4); RED CELL DISTRIBUTION WIDTH 14.7 % (11.6-16.5); WHITE BLOOD COUNT 9.9 X10^3/uL (3.6-10.0)
[2018-11-25 05:28] LABS: ALANINE AMINOTRANSFERASE 30 Units/L (12-78); ALBUMIN 2.9 g/dL (3.4-5.0); ALKALINE PHOSPHATASE 87 Units/L (46-116); ASPARTATE AMINO TRANSFERASE 58 Units/L (15-37); BLOOD UREA NITROGEN 5 mg/dL (7-18); CALCIUM 8.8 mg/dL (8.5-10.1); CARBON DIOXIDE 28.3 mmol/L (21-32); CHLORIDE 102 mmol/L (98-107); COR CA(FOR HYPOALB) 9.7 mg/dL (8.5-10.1); COR NA(FOR HYPERGLY) 140 mmol/L (136-145); CREATININE 1.11 mg/dL (0.55-1.02); SODIUM 138 mmol/L (136-145); eGFR NON BLACK RACES 55 (>60)
[2018-11-25] MEDS: ANCEF VIAL 1 GRAM IVP SCH ×3 (06:24→21:01)
[2018-11-25] MEDS ORDERED: POTASSIUM CHL 60 MEQ/NS 0.45% 500 ML IV PRN (07:40)
[2018-11-25] MEDS ORDERED: POTASSIUM CHL 40 MEQ/NS 0.45% 500 ML IV PRN (07:40)
[2018-11-25] MEDS ORDERED: MICRO K EXTEN CAP 10 MEQ PO PRN (07:40)
[2018-11-25] MEDS ORDERED: KLOR-CON PO PRN (07:40)
[2018-11-25] MEDS ORDERED: POTASSIUM CHLORIDE LIQ 20 MEQ UDC PO PRN (07:40)
[2018-11-25] MEDS ORDERED: K-RIDER 10 MEQ/NS 100 ML 10 MEQ/100 ML BAG IV PRN (07:40)
[2018-11-25] MEDS: ZOFRAN INJ 4 MG VIAL IVP PRN ×2 (07:47→17:10)
[2018-11-25] MEDS: PROTONIX INJ 40 MG VIAL IVP SCH (08:44)
[2018-11-25] MEDS: LOVENOX INJ 40 MG SYR SC SCH (08:46)
[2018-11-25] MEDS: LEVAQUIN PREMIX IV 500 MG 500 MG/100 ML BAG IV SCH (09:00)
[2018-11-25] MEDS: MAGNESIUM SULFATE 1 GRAM/100 mL PREMIX 1 GM/100 ML BAG IV PRN ×2 (10:12→11:35)
[2018-11-25] MEDS: MAGNESIUM SULFATE 1 GRAM/100 mL PREMIX 2 G/200 ML BAG IV SCH ×2 (10:25→12:32)
[2018-11-25] MEDS: K-DUR TAB 20 MEQ PO PRN ×2 (10:25→10:44)
--- NOTE | 2018-11-25 10:26 | DR.PROGNOT ---
Hospital Progress Notes - Progress Note for Day of: Progress Note Date: 11/25/18 - Chief Complaint Chief Complaint: PO Lap tiera and repair of incarcerated incisional hernia . doing very well with less pain. no SOB or CP . passing flatus , no BM yet . moderate drainage in [place]. LFT and CBC are normal . - Past Medical Family Social History Past Med/Fam/Surg Hx: No changes since H&P Allergies: Allergies latex Allergy (Verified 10/21/18 11:46) morphine Allergy (Verified 10/21/18 11:46) - Review Of Systems ROS: No change since H&P - Vital Signs Vital Signs: Temperature 97.8 F Pulse Rate [Left Brachial] 77 Pulse Rate 84 Respiratory Rate 33 Blood Pressure [Right Arm] 125/62 Blood Pressure [Left Arm] 114/65 Blood Pressure 121/61 O2 Sat by Pulse Oximetry 92 - Physical Exam : Normal GI:Auscultation: Normal GI: Tenderness: Diffuse (soft abdomen with diffuse denderness , BS+) Mood Description: Calm Speech Pattern: Clear, Appropriate - Laboratory and Diagnostics Result Diagrams: 11/25/18 04:23 11/25/18 04:23 Labs: Laboratory WBC 9.9 X10^3/uL (3.6-10.0) 11/25/18 04:23 RBC 4.08 X10^6/uL (3.5-5.4) 11/25/18 04:23 Hgb 12.2 g/dL (12.0-16.0) 11/25/18 04:23 Hct 36.3 % (36.0-47.0) 11/25/18 04:23 MCV 89.0 fL (80.0-100.0) 11/25/18 04:23 MCH 29.8 pg (27.0-34.0) 11/25/18 04:23 MCHC 33.5 g/dL (33.0-35.0) 11/25/18 04:23 RDW 14.7 % (11.6-16.5) 11/25/18 04:23 Plt Count 172 X10^3/uL (150.0-450.0) 11/25/18 04:23 Plt Count Comment Adequate (ADEQUATE) 11/24/18 04:45 MPV 8.6 fL (7.4-11.0) 11/25/18 04:23 Neut % (Auto) 80.9 % (42.0-75.0) H 11/25/18 04:23 Lymph % (Auto) 12.6 % (21.0-51.0) L 11/25/18 04:23 [place] % (Auto) 4.4 % (0.0-13.0) 11/25/18 04:23 Eos % (Auto) 1.7 % (0.9-2.9) 11/25/18 04:23 Baso % (Auto) 0.4 % (0.2-1.0) 11/25/18 04:23 Neut # (Auto) 8.0 x10^3/uL (2.2-4.8) H 11/25/18 04:23 Lymph # (Auto) 1.3 X10^3/uL (1.3-2.9) 11/25/18 04:23 [place] # (Auto) 0.4 x10^3/uL (0.3-0.8) 11/25/18 04:23 Eos # (Auto) 0.2 x10^3/uL (0.0-0.2) 11/25/18 04:23 Baso # (Auto) 0.0 X10^3/uL (0.0-0.1) 11/25/18 04:23 Absolute Nucleated RBC 0.0 /100WBC 11/25/18 04:23 Total Counted 100 11/24/18 04:45 Neutrophils % (Manual) 88 % (39-76) H 11/24/18 04:45 Lymphocytes % (Manual) 8 % (13-43) L 11/24/18 04:45 Monocytes % (Manual) 4 % (4-9) 11/24/18 04:45 Plt Morphology Comment Normal (NORMAL) 11/24/18 04:45 RBC Morphology Normal (NORMAL) 11/24/18 04:45 Sodium 138 mmol/L (136-145) 11/25/18 04:23 Corrected Sodium 140 mmol/L (136-145) 11/25/18 04:23 Potassium 3.6 mmol/L (3.5-5.1) 11/25/18 04:23 Chloride 102 mmol/L (98-107) 11/25/18 04:23 Carbon Dioxide 28.3 mmol/L (21-32) 11/25/18 04:23 BUN 5 mg/dL (7-18) L 11/25/18 04:23 Creatinine 1.11 mg/dL (0.55-1.02) H 11/25/18 04:23 Est GFR (MDRD) Af Amer > 60 (>60) 11/25/18 04:23 Est GFR (MDRD) Non-Af 55 (>60) L 11/25/18 04:23 Glucose 174 mg/dL (65-99) H 11/25/18 04:23 POC Glucose (mg/dL) 171 mg/dL (65-99) H 11/25/18 06:27 Calcium 8.8 mg/dL (8.5-10.1) 11/25/18 04:23 Corrected Calcium 9.7 mg/dL (8.5-10.1) 11/25/18 04:23 Magnesium 1.6 mg/dL (1.7-2.9) L 11/25/18 04:23 Total Bilirubin 0.30 mg/dL (0.2-1.0) 11/25/18 04:23 AST 58 Units/L (15-37) H 11/25/18 04:23 ALT 30 Units/L (12-78) 11/25/18 04:23 Alkaline Phosphatase 87 Units/L (46-116) 11/25/18 04:23 Total Protein 7.0 g/dL (6.4-8.2) 11/25/18 04:23 Albumin 2.9 g/dL (3.4-5.0) L 11/25/18 04:23 Globulin 4.1 g/dL (2.5-4.5) 11/25/18 04:23 Albumin/Globulin Ratio 0.7 Ratio (1.1-2.1) L 11/25/18 04:23 Specimen Type Catherized urine 11/23/18 13:40 Urine Color Yellow (YELLOW) 11/23/18 13:40 Urine Appearance Clear (CLEAR) 11/23/18 13:40 Urine pH 7.0 (5.0 - 8.0) 11/23/18 13:40 Ur Specific [place] 1.005 (1.000-1.030) 11/23/18 13:40 Urine Protein 2+ (NEGATIVE) 11/23/18 13:40 Urine Glucose (UA) Negative (NEGATIVE) 11/23/18 13:40 Urine Ketones Negative (NEGATIVE) 11/23/18 13:40 Urine Occult Blood Negative (NEGATIVE) 11/23/18 13:40 Urine Nitrite Negative (NEGATIVE) 11/23/18 13:40 Urine Bilirubin Negative (NEGATIVE) 11/23/18 13:40 Urine Urobilinogen Normal (NORMAL) 11/23/18 13:40 Ur Leukocyte Esterase Negative (NEGATIVE) 11/23/18 13:40 Urine RBC 0-2 /HPF (NONE SEEN) 11/23/18 13:40 Urine WBC 0-2 /HPF (NONE SEEN) 11/23/18 13:40 Ur Squamous Epith Cells Few /HPF (NEGATIVE) 11/23/18 13:40 Ur Renal Epithelial Cell Rare /HPF (NEGATIVE) 11/23/18 13:40 Urine Bacteria Negative /HPF (NEGATIVE) 11/23/18 13:40 Ur Culture Indicated? No/not indicated 11/23/18 13:40 Tissue Pathology To follow 11/23/18 14:32 - Assessment and Plan 1: PO lap tiera and repair of large incarcerated incisional hernia . OOB with binder , start full liquid diet . will keep the drain tody. same DVT prophylaxis . was treated for headlice - Problem Patient Problems: Patient Problems Cholelithiasis (Acute) K80.20
[2018-11-25] MEDS: NIX CREME RINSE EXT SCH ×2 (10:47)
[2018-11-26] MEDS: ZOFRAN INJ 4 MG VIAL IVP PRN ×2 (01:10→08:58)
[2018-11-26] MEDS: DILAUDID INJ IVP PRN ×3 (01:10→08:59)
[2018-11-26] MEDS: D5 1/2 NS 1000 ML 1,000 ML IV SCH (03:01)
[2018-11-26] MEDS: ANCEF VIAL 1 GRAM IVP SCH (05:05)
[2018-11-26 05:51] LABS: BASOPHILS % (AUTO) 0.4 % (0.2-1.0); EOSINOPHILS # (AUTO) 0.4 x10^3/uL (0.0-0.2); EOSINOPHILS % (AUTO) 3.2 % (0.9-2.9); HEMATOCRIT 38.4 % (36.0-47.0); HEMOGLOBIN 12.7 g/dL (12.0-16.0); LYMPHOCYTES # (AUTO) 1.2 X10^3/uL (1.3-2.9); LYMPHOCYTES % (AUTO) 10.5 % (21.0-51.0); MEAN CORPUSCULAR HEMOGLOBIN 29.9 pg (27.0-34.0); MEAN CORPUSCULAR HGB CONC 33.2 g/dL (33.0-35.0); MEAN CORPUSCULAR VOLUME 90.1 fL (80.0-100.0); MEAN PLATELET VOLUME 9.1 fL (7.4-11.0); MONOCYTES # (AUTO) 0.4 x10^3/uL (0.3-0.8); MONOCYTES % (AUTO) 3.8 % (0.0-13.0); NEUTROPHILS # (AUTO) 9.4 x10^3/uL (2.2-4.8); NEUTROPHILS % (AUTO) 82.1 % (42.0-75.0); PLATELET COUNT 209 X10^3/uL (150.0-450.0); RED BLOOD COUNT 4.26 X10^6/uL (3.5-5.4); RED CELL DISTRIBUTION WIDTH 14.5 % (11.6-16.5); WHITE BLOOD COUNT 11.5 X10^3/uL (3.6-10.0)
[2018-11-26 06:08] LABS: ALANINE AMINOTRANSFERASE 32 Units/L (12-78); ALBUMIN 2.8 g/dL (3.4-5.0); ALKALINE PHOSPHATASE 106 Units/L (46-116); ASPARTATE AMINO TRANSFERASE 59 Units/L (15-37); BLOOD UREA NITROGEN 5 mg/dL (7-18); CALCIUM 8.8 mg/dL (8.5-10.1); CARBON DIOXIDE 28.1 mmol/L (21-32); CHLORIDE 100 mmol/L (98-107); COR CA(FOR HYPOALB) 9.8 mg/dL (8.5-10.1); COR NA(FOR HYPERGLY) 137 mmol/L (136-145); CREATININE 1.01 mg/dL (0.55-1.02); MAGNESIUM 1.9 mg/dL (1.7-2.9); SODIUM 135 mmol/L (136-145); TOTAL PROTEIN 7.3 g/dL (6.4-8.2); eGFR NON BLACK RACES > 60 (>60)
--- NOTE | 2018-11-26 08:28 | PCM.PROG ---
Progress Note - Progress Note for Day of Date of Exam: 11/23/18 - Subjective Subjective: WAS ADMITTED DUE TO DEHYDRATION, INCARCERATED HERNIA WITH PARTIAL SMALL BOWEL OBSTRUCTION, AND CHOLELITHIASIS. TODAY, SHE IS ALERT AND ORIENTED, SITTING UP IN BED ON MORNING ROUNDS. SHE CONTINUES WITH COMPLAINTS OF ABDOMINAL PAIN AND NAUSEA. ON EXAMINATION, HEART IS REGULAR IN RATE AND RHYTHM. BILATERAL LUNGS ARE CLEAR TO AUSCULTATION. SHE IS NOTEDE WITH A LARGE, IRREDUCABLE RIGHT SIDED HERNIA. HYPOACTIVE BOWEL SOUNDS NOTED. HER VITALS THIS MORNING ARE 98.2-70-18-97%-122/55. LABS WERE OBTAINED. ABNORMAL LAB VALUES INCLUDE THE FOLLOWING: CREATININE 1.07, GLUCOSE 157, AST 51, ALBUMIN 3.1. PLANS TO TAKE PATIENT TO THE OR TODAY FOR HERNIA REPAIR AND CHOLECYSTECTOMY. WE ARE IN AGREEMENT WITH PLAN. OTHERWISE, WE WILL FOLLOW UP WITH AM LABS AND CONTINUE TO MONITOR. - Past Medical Family Social History Past Med/Fam/Surg Hx: No changes since H&P Allergies: Allergies latex Allergy (Verified 10/21/18 11:46) morphine Allergy (Verified 10/21/18 11:46) - Review of Systems ROS: No change since H&P - Vital Signs and I&O's Vital Signs: Temperature 97.6 F Pulse Rate [Left Brachial] 77 Pulse Rate 86 Respiratory Rate 16 Blood Pressure [Right Arm] 125/62 Blood Pressure [Left Arm] 114/65 Blood Pressure 121/56 O2 Sat by Pulse Oximetry 92 Intake and Output: Intake & Output 11/23/18 11/24/18 11/25/18 11/26/18 11:59 11:59 11:59 11:59 Intake Total 1800 / 1800 6030 / 6030 3713 / 3713 2648 / 2648 Output Total 2505 / 2505 870 / 870 45 / 45 Balance 1800 / 1800 3525 / 3525 2843 / 2843 2603 / 2603 - Physical Exam Oriented: Normal Eyes: Normal Ear: Normal Nose: Normal Throat: Normal Respiratory: Normal Cardiovascular: Normal : Normal Auscultation: Bowel Sounds: Normal, Decreased Palpation: Normal Tenderness: Diffuse (soft abdomen with diffuse denderness , BS+), Other (LARGE RIGHT SIDED IRREDUCABLE HERNIA ) Skin: Normal Musculoskeletal: Normal Psychiatric: Normal Mood Description: Calm Affect: Normal Speech Pattern: Clear, Appropriate - Laboratory and Diagnostics Result Diagrams: 11/26/18 04:36 11/26/18 04:36 Labs: Laboratory WBC 11.5 X10^3/uL (3.6-10.0) H 11/26/18 04:36 RBC 4.26 X10^6/uL (3.5-5.4) 11/26/18 04:36 Hgb 12.7 g/dL (12.0-16.0) 11/26/18 04:36 Hct 38.4 % (36.0-47.0) 11/26/18 04:36 MCV 90.1 fL (80.0-100.0) 11/26/18 04:36 MCH 29.9 pg (27.0-34.0) 11/26/18 04:36 MCHC 33.2 g/dL (33.0-35.0) 11/26/18 04:36 RDW 14.5 % (11.6-16.5) 11/26/18 04:36 Plt Count 209 X10^3/uL (150.0-450.0) 11/26/18 04:36 Plt Count Comment Adequate (ADEQUATE) 11/24/18 04:45 MPV 9.1 fL (7.4-11.0) 11/26/18 04:36 Neut % (Auto) 82.1 % (42.0-75.0) H 11/26/18 04:36 Lymph % (Auto) 10.5 % (21.0-51.0) L 11/26/18 04:36 [place] % (Auto) 3.8 % (0.0-13.0) 11/26/18 04:36 Eos % (Auto) 3.2 % (0.9-2.9) H 11/26/18 04:36 Baso % (Auto) 0.4 % (0.2-1.0) 11/26/18 04:36 Neut # (Auto) 9.4 x10^3/uL (2.2-4.8) H 11/26/18 04:36 Lymph # (Auto) 1.2 X10^3/uL (1.3-2.9) L 11/26/18 04:36 [place] # (Auto) 0.4 x10^3/uL (0.3-0.8) 11/26/18 04:36 Eos # (Auto) 0.4 x10^3/uL (0.0-0.2) H 11/26/18 04:36 Baso # (Auto) 0.0 X10^3/uL (0.0-0.1) 11/26/18 04:36 Absolute Nucleated RBC 0.0 /100WBC 11/26/18 04:36 Total Counted 100 11/24/18 04:45 Neutrophils % (Manual) 88 % (39-76) H 11/24/18 04:45 Lymphocytes % (Manual) 8 % (13-43) L 11/24/18 04:45 Monocytes % (Manual) 4 % (4-9) 11/24/18 04:45 Plt Morphology Comment Normal (NORMAL) 11/24/18 04:45 RBC Morphology Normal (NORMAL) 11/24/18 04:45 Sodium 135 mmol/L (136-145) L 11/26/18 04:36 Corrected Sodium 137 mmol/L (136-145) 11/26/18 04:36 Potassium 3.7 mmol/L (3.5-5.1) 11/26/18 04:36 Chloride 100 mmol/L (98-107) 11/26/18 04:36 Carbon Dioxide 28.1 mmol/L (21-32) 11/26/18 04:36 BUN 5 mg/dL (7-18) L 11/26/18 04:36 Creatinine 1.01 mg/dL (0.55-1.02) 11/26/18 04:36 Est GFR (MDRD) Af Amer > 60 (>60) 11/26/18 04:36 Est GFR (MDRD) Non-Af > 60 (>60) 11/26/18 04:36 Glucose 191 mg/dL (65-99) H 11/26/18 04:36 POC Glucose (mg/dL) 181 mg/dL (65-99) H 11/26/18 05:03 Calcium 8.8 mg/dL (8.5-10.1) 11/26/18 04:36 Corrected Calcium 9.8 mg/dL (8.5-10.1) 11/26/18 04:36 Magnesium 1.9 mg/dL (1.7-2.9) 11/26/18 04:36 Total Bilirubin 0.40 mg/dL (0.2-1.0) 11/26/18 04:36 AST 59 Units/L (15-37) H 11/26/18 04:36 ALT 32 Units/L (12-78) 11/26/18 04:36 Alkaline Phosphatase 106 Units/L (46-116) 11/26/18 04:36 Total Protein 7.3 g/dL (6.4-8.2) 11/26/18 04:36 Albumin 2.8 g/dL (3.4-5.0) L 11/26/18 04:36 Globulin 4.5 g/dL (2.5-4.5) 11/26/18 04:36 Albumin/Globulin Ratio 0.6 Ratio (1.1-2.1) L 11/26/18 04:36 Specimen Type Catherized urine 11/23/18 13:40 Urine Color Yellow (YELLOW) 11/23/18 13:40 Urine Appearance Clear (CLEAR) 11/23/18 13:40 Urine pH 7.0 (5.0 - 8.0) 11/23/18 13:40 Ur Specific [place] 1.005 (1.000-1.030) 11/23/18 13:40 Urine Protein 2+ (NEGATIVE) 11/23/18 13:40 Urine Glucose (UA) Negative (NEGATIVE) 11/23/18 13:40 Urine Ketones Negative (NEGATIVE) 11/23/18 13:40 Urine Occult Blood Negative (NEGATIVE) 11/23/18 13:40 Urine Nitrite Negative (NEGATIVE) 11/23/18 13:40 Urine Bilirubin Negative (NEGATIVE) 11/23/18 13:40 Urine Urobilinogen Normal (NORMAL) 11/23/18 13:40 Ur Leukocyte Esterase Negative (NEGATIVE) 11/23/18 13:40 Urine RBC 0-2 /HPF (NONE SEEN) 11/23/18 13:40 Urine WBC 0-2 /HPF (NONE SEEN) 11/23/18 13:40 Ur Squamous Epith Cells Few /HPF (NEGATIVE) 11/23/18 13:40 Ur Renal Epithelial Cell Rare /HPF (NEGATIVE) 11/23/18 13:40 Urine Bacteria Negative /HPF (NEGATIVE) 11/23/18 13:40 Ur Culture Indicated? No/not indicated 11/23/18 13:40 Tissue Pathology To follow 11/23/18 14:32 - Plan (1) Cholelithiasis Status: Acute Qualifiers: Cholelithiasis location: gallbladder Cholecystitis presence: with cholecystitis Cholecystitis acuity: acute and chronic Biliary obstruction: without biliary obstruction Qualified Code(s): K80.12 - Calculus of gallbladder with acute and chronic cholecystitis without obstruction Plan: CHOLECYSTECTOMY TODAY, CONTINUE TO MONITOR (2) Ventral hernia Status: Acute Qualifiers: Obstruction and gangrene presence: with obstruction but without gangrene Qualified Code(s): K43.6 - Other and unspecified ventral hernia with obstruction, without gangrene Plan: HERNIA REPAIR TODAY, CONTINUE TO MONITOR (3) Partial small bowel obstruction Status: Acute Plan: LAPAROSCOPY TODAY, CONTINUE TO MONITOR
[2018-11-26] MEDS: PROTONIX INJ 40 MG VIAL IVP SCH (08:49)
[2018-11-26] MEDS: LOVENOX INJ 40 MG SYR SC SCH (08:49)
[2018-11-26] MEDS ORDERED: MILK OF MAGNESIA PO SCH (09:00)
[2018-11-26 11:21] VITALS: BP 111/60
[2018-11-26] MEDS ORDERED: COLACE CAP 100 MG PO SCH (21:00)
== END 2018-11-26 11:50 | disposition home or self-care (01) | DRG 354 ==
LOC: MED/SURG 09:47 → ER 09:47 → OBSVTOIN 11:54 → MED/SURG 12:11 → ICU 11-23 17:04
PROVIDERS: ADMIT Internal Medicine; ATTEND Internal Medicine
DX: E78.2 Mixed hyperlipidemia; K66.0 Peritoneal adhesions (postprocedural) (postinfection); R11.2 Nausea with vomiting, unspecified; R26.89 Other abnormalities of gait and mobility; E11.65 Type 2 diabetes mellitus with hyperglycemia; K56.600 Partial intestinal obstruction, unspecified as to cause; K43.6 Other and unspecified ventral hernia with obstruction, without gangrene; K80.12 Calculus of gallbladder with acute and chronic cholecystitis without obstruction; E86.0 Dehydration; R10.84 Generalized abdominal pain
CPT/HCPCS: 36415; 74022; 80053; 81001; 81003; 83735; 84132; 85025; 93005; 94760; 96365; 97161; 99284; A4222; C9113; J3490; J0330; J0690; J1100; J1170; J1650; J1815; J1885; J1956; J2250; J2405; J2550; J2704; J2710; J3010; J3475; J7030; J7050; J7120; S5010